=== PATIENT | female | born 1985 ===

== ENCOUNTER 2017-10-13 16:38 | Emergency (ER) | payer OTHER ==
[~2017-10-13] VITALS: Ht 160 cm; Wt 60.4 kg
[2017-10-13 16:41] VITALS: BP 139/96; PULSE 90; TEMP 37.3; O2SAT 100; Ht 160 cm; Wt 60.4 kg
--- NOTE | 2017-10-13 21:56 | EMERGENCY ROOM VISIT NOTE ---
ED Visit Note First contact with patient: 16:48 Chief Complaint: Dog bite to the left wrist. History of Present Illness: Ms. Brown is a 32-year-old female who ambulates into the ED complaining of a dog bite wound to the left hand. 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 She was helping taking care of a sick dog and was accidentally bit in the left hand/wrist. This occurred approximately 6-7 hours prior to arrival at the hospital. She reports before coming to the hospital she did clean her wounds. Patient expresses concerns about possible rabies immunization. Patient reports she is from [facility] where she is actually a garland maker. She has never had rabies vaccination previously. She does report that the animal who bit her rabies immunizations are up-to-date but is still expressing concern. Currently she reports she is not having any pain or symptoms in the area of her dog bite. She denies any hand weakness/numbness/tingling. She has not seen any excessive bleeding. She has not taken any medications for her symptoms prior to arrival at the hospital. Review of Systems: As noted above in history of present illness. Past Medical History: Patient denies. Current Medications: Patient denies. Allergies to Medications: Patient denies. Social History: Patient is currently employed; she feels safe in her home environment; she denies tobacco use. Tetanus Immunization Status: Patient reports up-to-date. Physical Examination: Vital Signs: Date Time Temp Pulse Resp B/P (MAP) Pulse Ox O2 Delivery O2 Flow Rate FiO2 10/13/17 16:41 37.3 90 16 139/96 100 Room Air GENERAL: 32-year-old female in no acute distress, nontoxic-appearing, afebrile and hemodynamically stable. NEUROLOGICAL: Awake, alert and oriented to person, place and time. Answering questions appropriately and following commands. SKIN: Warm, dry and pink. Left Hand: Patient has 2 simple superficial abrasions. The first is over the palm of the hand between the thenar and hyperthenar eminence without active bleeding. The other one is located over the dorsal of the hand just lateral to the first metacarpal without bleeding. No puncture wounds were noted. LEFT UPPER EXTREMITY: No gross bony deformity. No tenderness throughout the forearm, wrist, hand or fingers. Soft tissue injuries are noted above. Full range of motion of the wrist and all fingers. Throughout the hand the skin was warm and pink and capillary refill is brisk. She is able to distinguish light sensations through all dermatomes. ED Course: Patient is assessed as noted above. Patient was offered pain medication and refused. Patient's wounds were cleansed with antibacterial soap and water and covered with a sterile bacitracin dressing. I had a lengthy conversation with the patient concerning rabies immunizations. [place] immunization against rabies were only given for animals that were rabid, animals that could not be tested for rabies or when injured by an unimmunized animal. I encouraged her to contact her employer for recommendations from Workmen's Compensation and if they thought it was appropriate for immunizations to return. Patient was educated about today's findings and instructed on her treatment plan ; she verbalized understanding and agreement with this plan. Clinical Impression: Dog bite left hand. Work-related injury. Disposition: Patient discharged home in stable condition accompanied by her ; prior to departure she was reassessed and subjectively reports she was now having some mild hand pain and rated her discomfort 1/10. Plan: Comfort measures, wound care and signs of infection were discussed with the patient. Patient was encouraged to follow-up with Workmen's Compensation concerning her questions about rabies immunization. Patient was encouraged return the ED or follow-up with Workmen's [employer] for any signs of infection or any new/concerning symptoms.
== END 2017-10-13 17:10 | disposition home or self-care (01) ==
LOC: C.EDB 16:40 → C.EDD 17:10
DX: S60.572A Other superficial bite of hand of left hand, initial encounter (principal); W54.0XXA Bitten by dog, initial encounter; Y99.0 Civilian activity done for income or pay; Y92.89 Other specified places as the place of occurrence of the external cause; Y93.89 Activity, other specified

== ENCOUNTER 2017-10-14 12:28 | Emergency (ER) | payer OTHER ==
[~2017-10-14] VITALS: Ht 160 cm; Wt 59.9 kg
[2017-10-14 12:32] VITALS: TEMP 36.8; Ht 160 cm; Wt 59.9 kg
--- NOTE | 2017-10-14 12:57 | EMERGENCY ROOM VISIT NOTE ---
ED Visit Note First contact with patient: 12:36 CHIEF COMPLAINT: Request for rabies vaccine HISTORY OF PRESENT ILLNESS: This 32-year-old female patient presents to the emergency department with concern for possible rabies exposure. Patient was seen here yesterday after a dog bite, at which time she thought that the rabies risk was low. Patient states this morning that she was called by the vet saying that the dog bit her has , the Department of Health recommended that she get vaccinated against rabies. Patient states that her dog bite wound has been doing well, she denies any signs of infection, and she denies any fevers or chills. She denies any numbness or tingling in the extremity. She denies any previous vaccination against rabies. 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 REVIEW OF SYSTEMS: A 6 system review of systems was completed with positives and pertinent negatives listed in the HPI. ALLERGIES: No known allergies. MEDICATIONS: No medications. PMH: Significant past medical or surgical history. Tetanus is up-to-date. SOCIAL HISTORY: Lives at home. She denies tobacco use.. PHYSICAL EXAM: Vital Signs: Reviewed Nurse's notes, vital signs stable. GENERAL : Pleasant and cooperative, in no acute distress, well-developed, well- nourished. HEAD: Atraumatic, without temporal or scalp tenderness. EYES: PERRLA, EOMI, no discharge or injection. SKIN: Healing superficial wound noted to the left dorsal hand, no erythema, significant swelling, or tenderness. Capillary refill less than 2 seconds. NEUROLOGICAL: Alert and oriented to person place and time. Normal sensation to light and sharp touch. MUSCULOSKELETAL: Motor functions grossly intact of the extremities. Full range of motion. EMERGENCY DEPARTMENT COURSE: I examined the patient. The patient was given RIG 20 Units/kg. The patient was given Pneumovax 1ml IM. The patient was observed for 20 minutes with no reaction. The patient was educated regarding return visit for subsequent rabies vaccinations, she verbalized understanding. Patient was discharged home in stable condition and ambulatory. Current/Historical Medications No Active Prescriptions or Reported Meds Allergies Coded Allergies: No Known Allergies (Unverified , 10/14/17) Vital Signs Date Time Temp Pulse Resp B/P (MAP) Pulse Ox O2 Delivery O2 Flow Rate FiO2 10/14/17 14:15 78 16 121/85 99 10/14/17 12:32 36.8 80 18 127/91 99 Room Air Medications Administered Medications (Trade) Dose Ordered Sig/Maxi Route Start Time Stop Time Status Last Admin Dose Admin Rabies Vaccine Human Diploid Cell (Imovax Rabies) 2.5 interunit ONCE ONCE IM. 10/14/17 13:00 10/14/17 13:01 DC 10/14/17 13:28 2.5 INTERUNIT Rabies Immune Globulin (Imogam Rabies Inj) 1,200 interunit ONCE ONCE IM. 10/14/17 13:00 10/14/17 13:01 DC 10/14/17 13:29 1,200 INTERUNIT Departure Information Impression Primary Impression: Dog bite Additional Impression: Rabies, need for prophylactic vaccination against Dispostion Home / Self-Care Condition GOOD Prescriptions No Active Prescriptions or Reported Meds Referrals No Doctor, Assigned (PCP) Patient Instructions My [facility], Rabies, Rabies Immune Globulin human RIG solution for injection, Rabies Vaccine suspension for injection Additional Instructions You have received rabies vaccine and immunoglobulin today. Today is day 0. You should return to the emergency department on days 3, 7, and 14 for additional vaccinations to complete the rabies prophylaxis. Continue vaccination schedule as directed. Your next visit should be 10/17/2017. Return for any complications. Problem Qualifiers Primary Impression: Dog bite Encounter type: subsequent encounter Qualified Codes: W54.0XXD - Bitten by dog, subsequent encounter
[2017-10-14] MEDS ORDERED: RABIES IMMUNE GLOBULIN (HUMAN) 150 INTER.UNIT/ML 2 ML VIAL IM. ONE (13:00)
[2017-10-14] MEDS ORDERED: RABIES VACCINE (IMOVAX) HUMAN DIPL CELL 2.5 INTER.UNIT/ML SYR IM. ONE (13:00)
[2017-10-14 14:15] VITALS: BP 121/85; PULSE 78; O2SAT 99
== END 2017-10-14 14:15 | disposition home or self-care (01) ==
LOC: C.EDB 12:29 → C.EDD 14:15
DX: Z23 Encounter for immunization (principal); Z20.3 Contact with and (suspected) exposure to rabies; S61.452D Open bite of left hand, subsequent encounter; W54.0XXD Bitten by dog, subsequent encounter

== ENCOUNTER 2017-10-17 10:29 | Emergency (ER) | payer OTHER ==
[~2017-10-17] VITALS: Ht 165.1 cm; Wt 59.9 kg
[2017-10-17 10:45] VITALS: Ht 165.1 cm; Wt 59.9 kg
[2017-10-17] MEDS ORDERED: RABIES VACCINE (IMOVAX) HUMAN DIPL CELL 2.5 INTER.UNIT/ML SYR IM. ONE (11:00)
--- NOTE | 2017-10-17 11:07 | EMERGENCY ROOM VISIT NOTE ---
ED Visit Note First contact with patient: 10:48 CHIEF COMPLAINT: Rabies Shot #2 HISTORY OF PRESENT ILLNESS: Patient is a 32-year-old female who protruding emergency department as advised for her second rabies vaccination. 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 She was referred here by the Department of Health. Rabies vaccination was initiated last week. She denies any problems or concerns with the prior injections. She did note some redness around the scabbed over wound on the dorsum of the left hand, and was a little bit concerned. She is not presently on any antibiotics. She has just been using Neosporin. REVIEW OF SYSTEMS: Review of systems as per HPI. All other systems reviewed were negative. At least 6 systems reviewed. PMH: Electronic medical records are reviewed and summarized as above/below. See Problem List. SOCIAL HISTORY: Patient lives at home. PHYSICAL EXAM: Vital Signs: Reviewed Nurse's notes. HEAD: Atraumatic, without temporal or scalp tenderness. EYES: PERRL, EOMI, no discharge or injection. SKIN: Patient has a linear scratch on the dorsum of the right hand, in the webspace between the thumb and index finger that is scabbed over, with very minimal erythema.. NEUROLOGICAL: Alert and cooperative. Sensory and motor functions grossly intact. EMERGENCY DEPARTMENT COURSE: The patient was reassured regarding the hand wound and was encouraged to continue local wound care measures. She was given Imovax IM, observed and then discharged. She will return to the emergency department as previously discussed for the final 2 vaccination, sooner for any problems or concerns. Current/Historical Medications No Active Prescriptions or Reported Meds Allergies Coded Allergies: No Known Allergies (Unverified , 10/17/17) Vital Signs Date Time Temp Pulse Resp B/P (MAP) Pulse Ox O2 Delivery O2 Flow Rate FiO2 10/17/17 11:23 36.8 72 20 123/79 98 10/17/17 10:45 36.8 72 20 123/79 98 Room Air Medications Administered Medications (Trade) Dose Ordered Sig/Maxi Route Start Time Stop Time Status Last Admin Dose Admin Rabies Vaccine Human Diploid Cell (Imovax Rabies) 2.5 interunit ONCE ONCE IM. 10/17/17 11:00 10/17/17 11:01 DC 10/17/17 11:11 2.5 INTERUNIT Departure Information Impression Primary Impression: Rabies, need for prophylactic vaccination against Prescriptions No Active Prescriptions or Reported Meds Referrals No Doctor, Assigned (PCP) Patient Instructions My [facility] Additional Instructions Return to the emergency department on 08/21 and 10/28 for your final vaccination, sooner for any problems or concerns.
[2017-10-17 11:23] VITALS: BP 123/79; PULSE 72; TEMP 36.8; O2SAT 98
== END 2017-10-17 11:20 | disposition home or self-care (01) ==
LOC: C.EDB 11:06
DX: Z23 Encounter for immunization (principal); S61.411A Laceration without foreign body of right hand, initial encounter; W54.0XXA Bitten by dog, initial encounter